=== PATIENT | female | born 1955 | race Caucasian/White ===

== ENCOUNTER 2019-07-13 08:09 | Emergency (ER) | payer MEDICARE ==
[~2019-07-13] VITALS: Ht 172.7 cm; Wt 68.2 kg
[2019-07-13] MEDS ORDERED: PANT20TA2 (08:17)
[2019-07-13] MEDS ORDERED: TYLENOL 2 TABS (08:19)
[2019-07-13] MEDS ORDERED: MORPHINE 4 MG/ML 1ML VIAL/SYRINGE (J2270) IV ONE (08:30)
[2019-07-13] MEDS ORDERED: ONDANSETRON 4MG/2ML VIAL IV ONE (08:30)
[2019-07-13 09:08] LABS: BASO % 0.4 % (0.0-1.0); EOS # 0.1 10^3/uL (0.0-0.5); EOS % 0.8 % (0.0-3.0); HEMATOCRIT 43.2 % (36.0-47.0); HEMOGLOBIN 14.2 g/dl (12.0-15.5); LYMPH # 0.8 10^3/uL (1.5-5.0); LYMPH % 11.2 % (24.0-44.0); MEAN CORPUSCULAR HEMOGLOBIN 29.6 pg (27.0-33.0); MEAN CORPUSCULAR HGB CONC 32.9 g/dl (32.0-36.5); MONO # 0.4 10^3/uL (0.0-0.8); MONO % 5.4 % (0.0-5.0); NEUTROPHILS # 6.2 10^3/uL (1.5-8.5); NEUTROPHILS % 81.7 % (36.0-66.0); PLATELET COUNT, AUTOMATED 342 10^3/uL (150-450); WHITE BLOOD COUNT 7.5 10^3/uL (4.0-10.0)
[2019-07-13 09:31] LABS: ALBUMIN 3.9 GM/DL (3.2-5.2); ALT/SGPT 29 U/L (12-78); AMYLASE 29 U/L (25-115); BILIRUBIN,DIRECT 0.2 MG/DL (0.0-0.2); BILIRUBIN,TOTAL 0.5 MG/DL (0.2-1.0); BLOOD UREA NITROGEN 12 MG/DL (7-18); CALCIUM LEVEL 9.6 MG/DL (8.8-10.2); CARBON DIOXIDE LEVEL 26 MEQ/L (21-32); CHLORIDE LEVEL 99 MEQ/L (98-107); CREATININE FOR GFR 0.72 MG/DL (0.55-1.30); GLOMERULAR FILTRATION RATE > 60.0 (>45); GLUCOSE, FASTING 94 MG/DL (70-100); LIPASE 73 U/L (73-393); POTASSIUM SERUM 4.3 MEQ/L (3.5-5.1); SODIUM LEVEL 134 MEQ/L (136-145); TOTAL PROTEIN 7.7 GM/DL (6.4-8.2)
--- NOTE | 2019-07-13 10:16 | REP ---
RIGHT UPPER QUADRANT ULTRASOUND: Real-time sonographic evaluation of the right upper quadrant performed. Gallbladder demonstrates no evidence of intraluminal sludge or calculi, wall thickening or pericholecystic fluid. There is no intrahepatic or extrahepatic biliary dilatation, common bile duct measuring 6 mm. Liver demonstrates no gross mass. Pancreas demonstrates no gross mass. Right kidney is mildly atrophic with a length of 8.6 cm and no hydronephrosis. There is no ascites. IMPRESSION: Essentially negative right upper quadrant ultrasound. Electronically Signed by Franki Lopez MD 07/13/2019 12:40 P
[2019-07-13] MEDS ORDERED: KETOROLAC 30 MG/ML 1ML VIAL IV ONE (11:30)
--- NOTE | 2019-07-13 12:09 | REP ---
THORACIC SPINE: Three AP and lateral views of the thoracic spine are performed. There is moderate compression of the T8 vertebral body of indeterminate age. No other fracture or dislocation is seen. There are mild diffuse degenerative changes of the thoracic spine. Posterior elements appear intact. Prominent soft tissue in the right paratracheal region may indicate a right paratracheal mass. IMPRESSION: Moderate compression of T8 of indeterminate age. Probable right paratracheal mass. Recommend CT of the chest with IV contrast. Electronically Signed by Franki Lopez MD 07/13/2019 12:45 P
[2019-07-13] MEDS ORDERED: NS 1,000 ML IV ONE (12:15)
[2019-07-13] MEDS ORDERED: ISOVUE-370 76% 100ML VIAL As Ordered ONE (12:23)
--- NOTE | 2019-07-13 14:09 | REP ---
CT CHEST WITH IV CONTRAST: TECHNIQUE: Axial contrast-enhanced images from the thoracic inlet to the upper abdomen using 100 mL Isovue-370 intravenous contrast material with multiplanar reformations. There is a large spiculated heterogeneously enhancing mass in the right upper lobe and posterior paratracheal region. Maximum diameter is 5.3 cm. The mass abuts the trachea and esophagus obliterating the fat planes along these structures. There are ill-defined infiltrating densities extending into the right upper lobe posteromedially. There is encasement and occlusion of the right upper lobe bronchus. The mass lies along the superior aspect of the bronchus intermedius, which is mildly narrowed. Precarinal adenopathy measures 1.8 cm. There is volume loss of the right upper lobe with upper displacement of the minor fissure. A bilobed nodule is seen in the anterior aspect of the right middle lobe, the superior component measures approximately 8 x 11 mm and the inferior component measures approximately 2.5 x 2.2 cm. Left lung is unremarkable. No axillary adenopathy is seen. There is moderate atherosclerotic calcification of the thoracic aorta with no aneurysm or dissection There is no pleural or pericardial effusion. 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 There is diffuse surrounding soft tissue more so on the right, with maximum thickness of the neoplastic soft tissue in a right paravertebral location 1.3 cm. There is extension into the right neural foramen at that level with diffuse epidural tumor at that level causing significant narrowing of the spinal canal. There is minimal displacement of the inferior aspect of the T8 vertebral body posteriorly, approximately 2 mm. No other bone lesion is seen. The visualized upper abdominal structures are unremarkable. IMPRESSION: Large heterogeneous spiculated mass in the right upper lobe medially in the posterior paratracheal region. The mass abuts the trachea and esophagus obliterating these fat planes. There is volume loss of the right upper lobe with encasement and occlusion of the right upper lobe bronchus. Precarinal adenopathy measures 1.8 cm. There is a bilobed anterior nodule in the right middle lobe as discussed above. There is a pathologic compression fracture of T8 with associated surrounding soft tissue density. There is slight retropulsion of the T8 vertebral body 2 mm. 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 Electronically Signed by Franki Lopez MD 07/13/2019 05:04 P
[2019-07-13 16:06] VITALS: BP 138/74
== END 2019-07-13 16:08 | disposition short-term general hospital (02) ==
LOC: M ED 08:09
DX: M84.48XA Pathological fracture, other site, initial encounter for fracture (principal); C79.49 Secondary malignant neoplasm of other parts of nervous system; R91.8 Other nonspecific abnormal finding of lung field; K21.9 Gastro-esophageal reflux disease without esophagitis; Z88.1 Allergy status to other antibiotic agents; Z87.891 Personal history of nicotine dependence
CPT/HCPCS: 71260; 72072; 76705; 80048; 80076; 81001; 82150; 83690; 85025; 96361; 96374; 96375; 99284; J1885; J2270; J2405; Q9967